=== PATIENT | female | born 1975 | race Caucasian/White ===

== ENCOUNTER 2025-01-18 09:10 | Emergency (ER) | payer OTHER, SELFPAY ==
--- NOTE | ~2025-01-18 | XR_ITS ---
EXAMINATION: XR knee RT min 4V DATE: 01/18/2025 10:11 INDICATION: Right knee injury. TECHNIQUE: 5 views of right knee were obtained. COMPARISON: None. FINDINGS: Alignment is normal. No fracture. Joint spaces are normal. No knee joint effusion. IMPRESSION: 1. Normal right knee. Reviewed, dictated and finalized at location A. METRY REGISTERED NURSE IMPRESSION: 1. Normal right knee.
--- NOTE | ~2025-01-18 | XR_ITS ---
EXAMINATION: XR hip RT min 2V DATE: 01/18/2025 10:10 INDICATION: Right hip injury. TECHNIQUE: 2 views of right hip were obtained. COMPARISON: None. FINDINGS: Alignment is normal. No fracture. There is mild right hip osteoarthritis. IMPRESSION: 1. Mild right hip osteoarthritis. Reviewed, dictated and finalized at location A. ATIONS DIRECTOR
--- NOTE | ~2025-01-18 | XR_ITS ---
EXAMINATION: XR shoulder RT min 2V DATE: 01/18/2025 10:11 INDICATION: Right shoulder injury. TECHNIQUE: 3 views of right shoulder were obtained. COMPARISON: None. FINDINGS: Alignment is normal. No fracture. There is mild osteoarthritis of glenohumeral joint and se tayler osteoarthritis of acromioclavicular joint. IMPRESSION: 1. Polyarticular osteoarthritis. Reviewed, dictated and finalized at location A. OR MEN'S READY TO WEAR
--- OUTSIDE RECORDS SUMMARY | 2025-01-18 09:14 | XMS_ITS | Clinical Summary ---
Author Organization [facility] Address [address] [place] [phone] Phone Care Team Providers Care Classroom Monitor Name Role Phone Provider, None Primary Care Provider Unavailabl e Allergies Active Allergy Reactions Criticality Noted Date Comments Codeine Rash 03/01/2024 Medications predniSONE (DELTASONE) 50 MG Tablet Take 1 Tablet by mouth daily. 5 Tablet 03/01/2024 Active Social History Tobacco Use Types Packs/Day Years Used Date Smoking Tobacco: Some Days Cigarettes Tobacco Cessation:Ready to Q uit: Not Asked; Counseling Given: Not Answered Comments Unknown Sex and Gender Information Value Date Recorded Sex Assigned at Not on file Legal Sex Female 12:00 AM CDT Gender Identity Not on file Sexual Orientation Not on file Last Filed Vital Signs Vital Sign Reading Time Taken Comments Blood Pressure 146/68 03/01/2024 11:30 AM CDT Pulse 59 03/01/2024 11:30 AM CDT Temperature 36.4 C (97.5 F) 03/01/2024 8:15 AM CDT Respiratory Rate 18 03/01/2024 11:30 AM CDT Oxygen Saturation 98% 03/01/2024 11:30 AM CDT Inhaled Oxygen Concentration - - Weight 72.6 kg (160 lb) 03/01/2024 8:15 AM CDT Height 175.3 cm (5' 9 ) 03/01/2024 8:15 AM CDT Body Mass Index 23.63 03/01/2024 8:15 AM CDT Plan of Treatment Health Maintenance Due Date Last Done Comments Hepatitis C Virus (HCV) Screening 1975 Hepatitis B Immunization (1 of 3 - 19+ 3-dose series) 1994 Pneumococcal Immunization Combined (1 of 2 - PCV) 1994 Pap Smear 1996 Cervical Cancer Screening (CCS) 2005 HPV/Cotest 2005 Mammogram 06/03/2024 06/03/2023, 12/18/2017 Influenza Immunization (#1) 2024 08/13/2019 SARS-COV-2 Immunization ( season) 2024 Colonoscopy 02/22/2031 02/22/2021 Colorectal Cancer Screening 02/22/2031 Respiratory Syncytial Virus (RSV) Immunization (Adult) (1 - 1-dose 75+ series) 2050 02/22/2021 DTaP/Tdap/Td Immunization Discontinued 11/19/2018 TdaP Immunization Completed 11/19/2018 Discussion re Starting/Frequency of Mammograms Completed 06/03/2023, 12/18/2017 Meningococcal Immunization (ACWY) Aged Out No longer eligible based on patient's age to complete this topic Rotavirus Immunization Aged Out No lo nger eligible based on patient's age to complete this topic Insurance Care Teams Classroom Monitor Relationship Specialty Start Date End Date Provider, None [place] PCP - General 11/09/21
--- OUTSIDE RECORDS SUMMARY | 2025-01-18 09:14 | XMS_ITS | Clinical Summary ---
Author Organization [facility] Address [address] [place] [address] Care Team Providers Care Projector Operator Name Role Phone Unavailable Primary Care Provider Unavailabl e Source Comments [facility],non-owned Affiliates and Associated Physician Practices is amultiple site organization consisting of ambulatory clinics and hospital sitesin [place], [place], [place] and [place]. This disclosure is being madepursuant to the Care Everywhere program and may not contain all information available regarding this patient. Last updated 18.[facility] Social History Tobacco Use Types Packs/Day Years Used Date Smoking Tobacco: Never Assessed Sex and Gender Information Value Date Recorded Sex Assigned at Not on file Gender Identity Not on file Sexual Orientation Not on file Plan of Treatment Health Maintenance Due Date Last Done Comments COLOGUARD (AGES 45-75) - COL ON CA SCREENING 1975 COLON MONITORING 1975 COLONOSCOPY - COLON CA SCREENING 1975 CT COLONOGRAPHY - COLON CA SCREENING 1975 Colorectal Cancer Screening 1975 FIT - COLON CA SCREENING 1975 FLEX SIG - COLON CA SCREENING 1975 LIPID TESTING 1975 MAMMOGRAM 1975 HIV SCREENING 1990 HEPATITIS C SCREENING 11/19/1993 DTAP/TDAP/TD VACCINES (1 - Tdap) 1994 HEPATITIS B VACCINE (1 of 3 - 19+ 3-dose series) 1994 PAP SMEAR 11/30/2001 11/30/1998 COVID-19 VACCINE ( - 2023-2 5 season) 2024 INFLUENZA VACCINE (#1) 2024 DEPRESSION SCREENING 11/13/2024 ZOSTER VACCINE (1 of 2) 2025 HIB VACCINE Aged Out No longer eligi ble based on patient's age to complete this topic HPV VACCINE Aged Out No longer eligi ble based on patient's age to complete this topic MENINGOCOCCAL (Group B) VACCINE Aged Out No longer eligible based on patient's age to complete this topic MENINGOCOCCAL VACCINE Aged Out No angelina maurice eligible based on patient's age to complete this topic PNEUMOCOCCAL VACCINE Aged Out No long er eligible based on patient's age to complete this topic Procedures Procedure Name Priority Date/Time Associated Diagnosis Comments CYTOLOGY SMEAR PAP THIN PREP ROXANE 11/30/1998 1:18 PM MEDICAL LIBRARY ASSISTANT from Last 3 Months or Most Recently Relevant to Health Maintenance Results * CYTOLOGY SMEAR PAP THIN PREP (11/30/1998 1:18 PM MEDICAL LIBRARY ASSISTANT) Result CASE NUMBER [id number] Comment: ORDERING PHYSICIAN JOAN HEREDIA SPECIMEN TYPE PAP Smear Date 11/30/1998 Procedure Cervical/Endocervical, 1 Vial for Thin Prep Received Specimen Adequacy Satisfactory for Evaluation Categorization Within Normal Limits Snomed. 12/09/1998 1516 <1> Casserole Preparer Kory Del Rio([facility]) PAP Footnote The PAP smear is only a screening procedure to aid in the detection of cervical cancer and its precursors. It is not a diagnostic procedure and should not be used as the sole means to detect cervical cancer. Both false negative and false positive results have been experienced. MISCELLANEOUS SAMPLES / Unknown 11/30/1998 1:18 PM MEDICAL LIBRARY ASSISTANT 12/08/1998 1:18 PM MEDICAL LIBRARY ASSISTANT Historical Provider LAB - PATHOLOGY/C YTOLOGY ORDERABLES from Last 3 Months or Most Recently Relevant to Health Maintenance
--- OUTSIDE RECORDS SUMMARY | 2025-01-18 09:14 | XMS_ITS | Patient Health Summary ---
Author Organization [facility] Address [address] [place] [address] Care Team Providers Care Office Machine Service Supervisor Name Role Phone Unavailable Primary Care Provider Unavailabl e Note from [facility],non-owned Affiliates and Associated Physician Practices is amultiple site organization consisting of ambulatory clinics and hospital sitesin [place], [place], [place] and [place]. This disclosure is being madepursuant to the Care Everywhere program and may not contain all information available regarding this patient. Last updated 18.[facility] Social History Tobacco Use Types Packs/Day Years Used Date Smoking Tobacco: Never Assessed Sex and Gender Information Value Date Recorded Sex Assigned at Not on file Gender Identity Not on file Sexual Orientation Not on file Procedures * CYTOLOGY SMEAR PAP THIN PREP(Performed 11/30/1998) Results * CYTOLOGY SMEAR PAP THIN PREP (11/30/1998 1:18 PM SMOKE ROOM OPERATOR) Result CASE NUMBER [id number] Comment: ORDERING PHYSICIAN JOAN HEREDIA SPECIMEN TYPE PAP Smear Date 11/30/1998 Procedure Cervical/Endocervical, 1 Vial for Thin Prep Received Specimen Adequacy Satisfactory for Evaluation Categorization Within Normal Limits Snomed. 12/09/1998 1516 <1> Coremaker Apprentice Kory Del Rio([facility]) PAP Footnote The PAP smear is only a screening procedure to aid in the detection of cervical cancer and its precursors. It is not a diagnostic procedure and should not be used as the sole means to detect cervical cancer. Both false negative and false positive results have been experienced. MISCELLANEOUS SAMPLES / Unknown 11/30/1998 1:18 PM SMOKE ROOM OPERATOR 12/08/1998 1:18 PM SMOKE ROOM OPERATOR Historical Provider LAB - PATHOLOGY/C YTOLOGY ORDERABLES
--- OUTSIDE RECORDS SUMMARY | 2025-01-18 09:14 | XMS_ITS | Referral Summary ---
Author Organization [facility] Address [address] [place] [address] Care Team Providers Care Cardroom Plastic Card Grader Name Role Phone Troy Huizar MD Primary Care Provider [phone] Olga Choudhary MD Unavailable [phone] Taina Reyes MD Unavailable [phone] Allergies Active Allergy Reactions Criticality Noted Date Comments Ciprofloxacin Itching,Nausea only Low 02/20/2021 Codeine Anxiety,Shortness of breath,Rash High 03/01/2024 Reaction: anxiety, sob, , , Medications albuterol HFA (PROVENTIL HFA,VENTOLIN HFA,PROAIR HFA) 90 mcg/actuation inhalerIndications :Mild intermittent reactive airway disease without complication Inhale 2 puffs every 4 to 6 hours as needed for cough, wheeze, SOB, tightness in chest. 1 each 3 05/02/20 23 Active wheat dextrin (BENEFIBER CLEAR SF, DEXTRIN, ORAL) Take 1 Scoop by mouth daily Mix 1 tablespoon in 1 bottle of water Active hydrocortisone (ANUSOL-HC) 2.5 % rectal cream Insert into the rectum 2 (two) times a day as needed for hemorrhoids Active ascorbic acid (VITAMIN C) 500 mg tablet,chewable Take 1 tablet/chew tab (500 mg total) by mouth 2 (two) times a day 60 tablet/chew tab 04/15/20 24 Active cholecalciferol (VITAMIN D-3) 2000 unit capsule Take 1 capsule (2,000 Units total) by mouth daily 30 capsule 04/15/20 24 Active aspirin 81 mg enteric coated tablet Take 1 tablet (81 mg total) by mouth daily for 14 days 21 tablet 04/15/20 24 Active oxyCODONE-acetamin ophen (PERCOCET) 5-325 mg per tabletIndications: Pain Take 1-2 tablets by mouth every 4 (four) hours as needed for pain 30 tablet 04/15/20 24 Active senna-docusate (PERICOLACE) 8.6-50 mg Take 1-2 tablets daily prn for constipation 30 tablet 04/15/20 24 Active naproxen (NAPROSYN) 500 mg tablet Take 1 tablet (500 mg total) by mouth 2 (two) times a day with meals 84 tablet 04/15/20 24 Active omeprazole (PriLOSEC) 20 mg capsule Take 1 capsule (20 mg total) by mouth daily 30 capsule 1 04/17/20 24 025 Active dicyclomine (BENTYL) 10 mg capsule Take 2 capsules (20 mg total) by mouth 4 (four) times a day before meals and nightly 90 capsule 3 05/30/20 24 Active ondansetron ODT (ZOFRAN-ODT) 4 mg disintegrating tablet Take 1 tablet (4 mg total) by mouth every 8 (eight) hours as needed for nausea or vomiting 30 tablet 3 05/30/20 24 Active Active Problems Problem Noted Date Diagnosed Date Hip pain, right 04/15/2024 Tear of right acetabular labrum 03/21/2024 Encounter for screening for lipid disorder 02/19 Assessment & Plan (02/20/2024 9:04 AM CDT): Lipid panel ordered. Will message through [employer] with results once received. Preop examination 02/20/2024 Assessment & Plan (02/20/2024 9:06 AM CDT): Pt will be medically cleared to proceed with surgery per family medicine standpoint once all labs and other diagnostics have been received and reviewed. Counseled of any applicable prescribed or OTC medications, supplements to discontinue and/or hold preoperatively w/ direction of when to resume postoperatively as agreed by surgeon. Pt was instructed to contact the office with absolutely any changes prior to and post surgery. Hot flashes 10/31/2023 Assessment & Plan (10/31/2023 11:28 AM SHIP'S ENGINEER): Patient is s/p partial hysterectomy 2015. We discussed treatment options for hot flashes recommended low-dose paroxetine. Patient prefers to avoid use of Paxil. She is interested in trying herbal supplement, black cohosh. Right hip pain 05/05/2023 Assessment & Plan (10/31/2023 11:28 AM SHIP'S ENGINEER): Updated referral today to Orthopedic surgery and given patient phone number to call and schedule an appointment. Continue meloxicam, patient aware that she can not take more than 15 mg daily. Recommended she supplement meloxicam with acetaminophen. Assessment & Plan (05/05/2023 11:58 AM CDT): Given reports of hip popping in and out of place, will check xray today. Encouraged use of nsaids. Late entry: reviewed imaging negative for fracture or dislocation, showing arthritic change. Prescribed meloxicam for pain. Referral placed to orthopedic surgery for further evaluation and treatment. Encounter to establish care 04/27/2023 Assessment & Plan (05/05/2023 11:56 AM CDT): Preventive exam; reviewed recommended preventive screenings and vaccinations. Encourage annual flu vaccine. Wear sunscreen/protective clothing when outdoors. -Mammogram ordered today -Encouraged continued WWE/Pap screening Reactive airway disease 04/27/2023 Assessment & Plan (02/20/2024 9:04 AM CDT): No recent exacerbation. Chest x-ray prior to surgery. Assessment & Plan (05/05/2023 11:56 AM CDT): No recent exacerbation. Prn use of albuterol. Encounter for screening mammogram for breast can cer 04/27/2023 Poor sleep 2021 Lack of energy 08/16/2021 Assessment & Plan (08/16/2021 2:49 PM CDT): -discussed. Could be a symptom of depression? Discussed refer to psychiatry. Patient is really very of that she states and describes about experienced with her daughter. No suicidal ideation. Recommended to monitor the symptoms and contact me other primary care physician if the symptoms worsen in any way. Nausea 06/30/2021 Assessment & Plan (06/30/2021 1:39 PM CDT): -will give Zofran p.r.n. for nausea. Irritable bowel syndrome with diarrhea Overview (02/20/2021): Added automatically from request for surgery [id number] Assessment & Plan (02/20/2024 9:04 AM CDT): Refilled dicyclomine. Reviewed dietary recommendations. Continue following with GI as directed. Assessment & Plan (10/31/2023 11:29 AM SHIP'S ENGINEER): Symptoms stable, continue p.r.n. dicyclomine. Assessment & Plan (04/27/2023 3:52 PM CDT): Following with GI. Continues bentyl as needed. Assessment & Plan (01/12/2022 3:29 PM SHIP'S ENGINEER): -not taking any medications. States that she does not have any money. Even to buy groceries. Given number to social work assistant. Has been got a new insurance. Recommended to start back on medications once she has insurance. -when she has insurance to will continue back on Pentasa. -occasional abdominal pain. Will give Bentyl p.r.n.. Continue soluble fiber supplementation. Encouraged Benefiber use. -will add low-dose amitriptyline. Also reports poor sleep. + fatigue (most likely secondary to poor sleep and recent COVID). Will re-evaluate during next clinic visit. -Also recommended non pharmacological measures as noted below, --ROOM TEMPERATURE BEVERAGES. -Maintain good hydration. With approximately 64 oz of water a day -AVOID RAW VEGETABLES. EAT COOKED VEGETABLES. -drink coconut water as one of the preferred beverages. -consider use of yogurt, which is a good probiotic. -consider use of honey with lemon, jj if possible. -Use benefibre, or fibrecon if methylcellulose not available or cannot be tolerated. -MINDFULLNESS WITH 20MIN FOR TWICE A DAY. -30 minutes of low intensity walking every day. Assessment & Plan (2021 12:06 PM SHIP'S ENGINEER): -occasional abdominal pain. Will give Bentyl p.r.n.. Continue soluble fiber supplementation. Encouraged Benefiber use. -will add low-dose amitriptyline. Also reports poor sleep. + fatigue (most likely secondary to poor sleep and recent COVID). Will re-evaluate during next clinic visit. -Also recommended non pharmacological measures as noted below, --ROOM TEMPERATURE BEVERAGES. -Maintain good hydration. With approximately 64 oz of water a day -AVOID RAW VEGETABLES. EAT COOKED VEGETABLES. -drink coconut water as one of the preferred beverages. -consider use of yogurt, which is a good probiotic. -consider use of honey with lemon, jj if possible. -Use benefibre, or fibrecon if methylcellulose not available or cannot be tolerated. -MINDFULLNESS WITH 20MIN FOR TWICE A DAY. -30 minutes of low intensity walking every day. Assessment & Plan (08/16/2021 2:48 PM CDT): -occasional abdominal pain. Will give Bentyl p.r.n.. Not taking soluble fiber supplementation. Encouraged to do so. Cannot tolerate methylcellulose. Encouraged Benefiber use. -Also recommended non pharmacological measures as noted below, --ROOM TEMPERATURE BEVERAGES. -Maintain good hydration. With approximately 64 oz of water a day -AVOID RAW VEGETABLES. EAT COOKED VEGETABLES. -drink coconut water as one of the preferred beverages. -consider use of yogurt, which is a good probiotic. -consider use of honey with lemon, jj if possible. -Use benefibre, or fibrecon if methylcellulose not available or cannot be tolerated. -MINDFULLNESS WITH 20MIN FOR TWICE A DAY. -30 minutes of low intensity walking every day. Assessment & Plan (06/30/2021 1:39 PM CDT): -use of soluble soluble fiber supplementation with methylcellulose daily. Also recommended non pharmacological measures as noted below, --ROOM TEMPERATURE BEVERAGES. -Maintain good hydration. With approximately 64 oz of water a day -AVOID RAW VEGETABLES. EAT COOKED VEGETABLES. -drink coconut water as one of the preferred beverages. -consider use of yogurt, which is a good probiotic. -consider use of honey with lemon, jj if possible. -Use benefibre, or fibrecon if methylcellulose not available or cannot be tolerated. -MINDFULLNESS WITH 20MIN FOR TWICE A DAY. 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 Symptoms of abdominal pain well controlled with Bentyl. No diarrhea. -doing well on Apriso. Will continue. -occasional abdominal pain. Will give Bentyl p.r.n.. Continue soluble fiber supplementation. Encouraged Benefiber use. -Also recommended non pharmacological measures as noted below, --ROOM TEMPERATURE BEVERAGES. -Maintain good hydration. With approximately 64 oz of water a day -AVOID RAW VEGETABLES. EAT COOKED VEGETABLES. -drink coconut water as one of the preferred beverages. -consider use of yogurt, which is a good probiotic. -consider use of honey with lemon, jj if possible. -Use benefibre, or fibrecon if methylcellulose not available or cannot be tolerated. -MINDFULLNESS WITH 20MIN FOR TWICE A DAY. -30 minutes of low intensity walking every day. Assessment & Plan (01/12/2022 3:31 PM SHIP'S ENGINEER): -microscopic disease. Endoscopy grossly normal. -Will continue with Pentasa at the current dose. Refill given. For chronic diarrhea will give soluble fiber supplementation with methylcellulose. Will give Imodium on a p.r.n. basis. Prescriptions given. -CBC, CMP, ESR, CRP normal. fecal calprotectin not done. Assessment & Plan (08/16/2021 2:47 PM CDT): -microscopic disease. Endoscopy clearly normal. Will continue with Pentasa at the current dose. Refill given. For chronic diarrhea will give soluble fiber supplementation with methylcellulose. Will give Imodium on a p.r.n. basis. Prescriptions given. Also recommended, -ROOM TEMPERATURE BEVERAGES. -Maintain good hydration. With approximately 64 oz of water a day -AVOID RAW VEGETABLES. EAT COOKED VEGETABLES. -drink coconut water as one of the preferred beverages. -consider use of yogurt, which is a good probiotic. -consider use of honey with lemon, jj if possible. -Use benefibre, or fibrecon if methylcellulose not available or cannot be tolerated. -MINDFULLNESS WITH 20MIN FOR TWICE A DAY. Assessment & Plan (06/30/2021 1:38 PM CDT): -microscopic disease. Endoscopy clearly normal. Will continue with Pentasa at the current dose. Refill given. For chronic diarrhea will give soluble fiber supplementation with methylcellulose. Will give Imodium on a p.r.n. basis. Prescriptions given. Also recommended, -ROOM TEMPERATURE BEVERAGES. -Maintain good hydration. With approximately 64 oz of water a day -AVOID RAW VEGETABLES. EAT COOKED VEGETABLES. -drink coconut water as one of the preferred beverages. -consider use of yogurt, which is a good probiotic. -consider use of honey with lemon, jj if possible. -Use benefibre, or fibrecon if methylcellulose not available or cannot be tolerated. -MINDFULLNESS WITH 20MIN FOR TWICE A DAY. Assessment & Plan (03/01/2021 11:50 AM CDT): -microscopic disease. Endoscopy clearly normal. Will continue with Pentasa at the current dose. Refill given. For chronic diarrhea will give soluble fiber supplementation with methylcellulose. Will give Imodium on a p.r.n. basis. Prescriptions given. Also recommended, -ROOM TEMPERATURE BEVERAGES. -Maintain good hydration. With approximately 64 oz of water a day -AVOID RAW VEGETABLES. EAT COOKED VEGETABLES. -drink coconut water as one of the preferred beverages. -consider use of yogurt, which is a good probiotic. -consider use of honey with lemon, jj if possible. -Use benefibre, or fibrecon if methylcellulose not available or cannot be tolerated. -MINDFULLNESS WITH 20MIN FOR TWICE A DAY. Ulcerative pancolitis with rectal bleeding 02/19/2021 05/30/2024 Overview (02/20/2021): Added automatically from request for surgery [id number] Assessment & Plan (10/19/2022 11:35 AM SHIP'S ENGINEER): -symptoms well controlled. Symptoms of abdominal pain well controlled with Bentyl. No diarrhea. -doing well on Apriso. Will continue. -occasional abdominal pain. Will give Bentyl p.r.n.. Continue soluble fiber supplementation. Encouraged Benefiber use. -Also recommended non pharmacological measures as noted below, --ROOM TEMPERATURE BEVERAGES. -Maintain good hydration. With approximately 64 oz of water a day -AVOID RAW VEGETABLES. EAT COOKED VEGETABLES. -drink coconut water as one of the preferred beverages. -consider use of yogurt, which is a good probiotic. -consider use of honey with lemon, jj if possible. -Use benefibre, or fibrecon if methylcellulose not available or cannot be tolerated. -MINDFULLNESS WITH 20MIN FOR TWICE A DAY. -30 minutes of low intensity walking every day. Assessment & Plan (2021 12:01 PM SHIP'S ENGINEER): -microscopic disease. Endoscopy grossly normal. Reports new onset of bloody stools. -Will continue with Pentasa at the current dose. Refill given. For chronic diarrhea will give soluble fiber supplementation with methylcellulose. Will give Imodium on a p.r.n. basis. Prescriptions given. -will obtain CBC, CMP, ESR, CRP and fecal calprotectin for evaluation for baseline hematological, metabolic, him inflammatory biomarkers and to assess disease activity with fecal calprotectin. Also recommended, -ROOM TEMPERATURE BEVERAGES. -Maintain good hydration. With approximately 64 oz of water a day -AVOID RAW VEGETABLES. EAT COOKED VEGETABLES. -drink coconut water as one of the preferred beverages. -consider use of yogurt, which is a good probiotic. -consider use of honey with lemon, jj if possible. -Use benefibre, or fibrecon if methylcellulose not available or cannot be tolerated. -MINDFULLNESS WITH 20MIN FOR TWICE A DAY. Tobacco dependence syndrome 03/29/2014 10/02/2017 Overview (02/16/2017): TOBACCO USE DISORDER Immunizations Immunization Administration Dates Next Due Influenza, Split 02/28/2014 Influenza, Unspecified 02/12/2024(Deferr ed: Patient Refused),10/30/2023(Deferred: Patient Refused),08/13/2023(Deferred: Patient Refused),08/13/2022(Deferred: Patient Refused),07/14/2022(Deferred: Patient Refused),08/13/2021(Deferred: Patient Refused),08/13/2019,10/02/2017(Deferred: Patient Refused),10/02/2017(Deferred: Patient Refused),11/13/2016(Deferred: Patient Refused),11/13/2016(Deferred: Patient Refused) Tdap 11/19/2018 Social History Tobacco Use Types Packs/Day Years Used Date Smoking Tobacco: Former Cigarettes Q uit: 09/13/2016 Smokeless Tobacco: Former Comments:Smoking History Pac ks/day: 0.75 Packs Alcohol Use Standard Drinks/Week Comments No 0 (1 standard drink = 0.6 oz pur e alcohol) AUDIT-C Answer Date Recorded Q1: How often do you have a drink containing alcohol? Never 08/15/2024 Q2: How many drinks containi ng alcohol do you have on a typical day when you are drinking? Patient does not drink Q3: How often do you have si x or more drinks on one occasion? Never 08/15/2024 PHQ-2 Answer Date Recorded PHQ-2 Total Score (If total score is 3 or more points, staff should administer the PHQ-9) 0 02/20/2024 Personal Safety Answer Date Recorded Have you ever been in or are you currently in a harmful physical or emotional relationship or is someone making you feel afraid or unsafe? 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 Not on file Not on file Not on file Last Filed Vital Signs Vital Sign Reading Time Taken Comments Blood Pressure 125/75 08/15/2024 1:03 PM CDT Pulse 76 08/15/2024 1:03 PM CDT Temperature 37 C (98.6 F) 04/15/2024 7:15 PM CDT Respiratory Rate 16 04/15/2024 7:15 PM CDT Oxygen Saturation 98% 05/30/2024 10:53 AM CDT Inhaled Oxygen Concentration - - Weight 76.2 kg (168 lb) 08/15/2024 1:03 PM CDT Height 172.7 cm (5' 8 ) 08/15/2024 1:03 PM CDT Body Mass Index 25.54 08/15/2024 1:03 PM CDT Plan of Treatment Not on file Medical Devices Implanted Type Area Factory Clerk Device Identifier Shelf Expiration Date Model / Serial / Lot [employer] Fiberlink Ar[employer]rex Suturetape 1.3mm Tape Suture Nonabsorbable [id number] - [id number] Implanted:Qty: 2 on 04/15/2024 by Yefri Griggs MD at [facility] Right: Hip [employer] AR-7535 / / Arthrex Suture [place], Biocomposite, Mini Hip Pushlock 2.4 X 8.9mm (Ref [id number]) Implanted:Qty: 2 on 04/15/2024 by Yefri Griggs MD at [facility] Right: Hip [employer] 05/12/2025 [id number] / / [id number] Description:THE MINI PUSHLOC K IS LISTED IN SCCS A SUPPLY-DC Procedures Procedure Name Priority Date/Time Associated Diagnosis Comments SCREENING MAMMOGRAM BILATERAL W CIRILO Schedule Routine, Read Routine (OP Routine) 06/03/2023 10:12 AM CDT Encounter for screening mammogram for breast cancer COLONOSCOPY 02/22/2021 1:15 PM CDT THINPAP, REFLEX HPV ALL PTH Routine 10/03/2013 12:00 AM SHIP'S ENGINEER from Last 3 Months or Most Recently Relevant to Health Maintenance Results * SCREENING MAMMOGRAM BILATERAL W CIRILO (06/03/2023 10:12 AM CDT) Anatomical Region Laterality Modality Breast Bilateral Mammography 06/04/2023 9:02 AM CDT Impressions 06/04/2023 9:02 AM CDT There is no mammographic evidence of malignancy. A 1 year screening mammogram is recommended. BI-RADS: 1 - Negative. The patient has been or will be contacted. The patient will be entered into a reminder system with a target due date of 1 year for her next mammogram. Electronically signed by: CLARITZA Connelly 06/04/2023 9:02 AM CDT EXAMINATION: SCREENING MAMMOGRAM BILATERAL W CIRILO ORDERING HEALTHCARE PROVIDER: ZAK CRUZ HISTORY: Routine screening mammography. COMPARISON: None available. TECHNIQUE: CC and MLO views of both breasts were obtained with digital technique using digital breast tomosynthesis with C view. Computer aided detection was utilized. FINDINGS: DENSITY: The breasts are extremely dense, which lowers the sensitivity of mammography. BREASTS: There are no suspicious masses, suspicious calcifications, or other suspicious findings in either breast. us Zak Cruz FARE COLLECTOR IMG MAMMO PROCEDURES Final Result * COLONOSCOPY (02/22/2021 1:15 PM CDT) Anatomical Region Laterality Modality Other Narrative Procedure Note Olga Choudhary MD - 02/22/2021 1:15 PM CDT [facility] Patient Name: Shellie Louie Procedure Date: 02/22/2021 1:15 PM Date of : 1975 Admit Type: Inpatient Age: 45 Gender: Female Note Status: Finalized Attending MD: Olga Choudhary M.D. Procedure Date: 02/22/2021 Procedure: Colonoscopy Indications: Abdominal pain, Chronic diarrhea, Rectal bleeding, Abnormal CT of the GI tract Providers: Olga Choudhary M.D., Humberto Ordonez M.D. (Anesthesia Staff), Altagracia Walls RN, Jayshree Harris RN Referring MD: Troy Huizar M.D. Medicines: Monitored Anesthesia Care Complications: No immediate complications. Estimated Blood Loss: Estimated blood loss was minimal. Procedure: Pre-Anesthesia Assessment: - Prior to the procedure, a History and Physicalwas performed, and patient medications and allergieswere reviewed. The patient is competent. The risks and benefits of the procedure and the sedation optionsand risks were discussed with the patient. Allquestions were answered and informed consent was obtained. Patient identification and proposed procedure were verified by the physician and the nurse in the pre-procedure area in the procedure room. Mental Status Examination: alert and oriented. Airway Examination: normal oropharyngeal airway and neck mobility. Respiratory Examination: clear to auscultation. CV Examination: normal. Prophylactic Antibiotics: The patient does not requireprophylactic antibiotics. Prior Anticoagulants: The patient has taken no previous anticoagulant or antiplatelet agents. ASA Grade Assessment: III - A patient with severe systemic disease. After reviewing the risksand benefits, the patient was deemed in satisfactory condition to undergo the procedure. The anesthesia plan was to use monitored anesthesia care (MAC). Immediately prior to administration of medications, the patient was re-assessed for adequacy to receive sedatives. The heart rate, respiratory rate, oxygen saturations, blood pressure, adequacy of pulmonary ventilation, and response to care were monitored throughout the procedure. The physical status ofthe patient was re-assessed after the procedure. - The risks and benefits of the procedure and the sedation options and risks were discussed with the patient. All questions were answered and informed consent was obtained. After I obtained informed consent, the scope was passed under direct vision. Throughout theprocedure, the patient's blood pressure, pulse, and oxygen saturations were monitored continuously. The scopewas passed under direct vision. The Colonoscope was introduced through the anus and advanced to the the terminal ileum, with identification of theappendiceal orifice and IC valve. The colonoscopy was performed without difficulty. The patient tolerated the procedure well. The quality of the bowelpreparation was fair. The bowel preparation used was MoviPrepvia split dose instruction. Findings: The perianal and digital rectal examinations were normal. Non-bleeding internal hemorrhoids were found during retroflexion. The hemorrhoids were mild. Normal mucosa was found in the entire colon. Biopsies were taken witha cold forceps for histology. Verification of patient identificationfor the specimen was done by the nurse. Estimated blood loss wasminimal. The terminal ileum appeared normal. Impression: - Preparation of the colon was fair. - Non-bleeding internal hemorrhoids. - Normal mucosa in the entire examined colon.Biopsied. - The examined portion of the ileum was normal. Recommendation: - Return patient to hospital [facility] for ongoingcare. - Resume previous diet. - Continue present medications. - Await pathology results. - Follow up in GI clinic. - Can discontinue pentasa. - Repeat colonoscopy at age 50 for screeningpurposes. Procedure Code(s): --- Professional --- 84614, Colonoscopy, flexible; with biopsy, singleor multiple Diagnosis Code(s): --- Professional --- K64.8, Other hemorrhoids R10.9, Unspecified abdominal pain K52.9, Noninfective gastroenteritis and colitis, unspecified K62.5, Hemorrhage of anus and rectum R93.3, Abnormal findings on diagnostic imaging of other parts of digestive tract CPT copyright 2019 [employer]. All rights reserved. The codes documented in this report are preliminary and upon blindstitch hemmer reviewmay be revised to meet current compliance requirements. Electronically signed by Funmi Espinoza MD Olga Choudhary M.D. 02/22/2021 2:56:51 PM This report has been electronically signed by the physician. Number of Addenda: 0 Note Initiated On: 02/22/2021 1:15 PM Olga Choudhary MD ENDOSCOPY PROCEDURES Final Re sult * ThinPrep Pap, Reflex HPV all pth (10/03/2013 12:00 AM SHIP'S ENGINEER) SOURCE: SEE NOTE [facility] HISTORICAL RESULTS Comment:Cervix, Endocervix CLINICAL INFORMATION: SEE NOTE [facility] HISTORICAL RESULTS Comment:Normal exam LMP SEE NOTE [facility] HISTORICAL RESULTS Comment:09/27/13 Previous Pap SEE NOTE [facility] HISTORICAL RESULTS Comment:Information not prov ided Prev. Bx SEE NOTE [facility] HISTORICAL RESULTS Comment:Information not prov ided Pap, specimen adequacy SEE NOTE [facility] HISTORICAL RESULTS Comment: Satisfactory for evaluation. Endocervical/transformation zone component absent. HPV interp SEE NOTE [facility] HISTORICAL RESULTS Comment:Negative for intraep ithelial lesion or malignancy. Lactobacillus species SEE NOTE [facility] HISTORICAL RESULTS Comment: This Pap test has been evaluated with computer assisted technology. Senior Project Architect SEE NOTE [facility] HISTORICAL RESULTS Comment: JEL, CT(ASCP) Test performed at [facility] [address] Director: AJAY RAPHAEL DO, MPH 10/03/2013 Maryse Zhang MD LAB PATHOLOGY ORDERAB LES Final Result [facility] HISTORICAL RESULTS from Last 3 Months or Most Recently Relevant to Health Maintenance Insurance [id number] CHOICE PLUS CHOICE PLUS CHOICE PLUS CHOICE PLUS [employer] OPEN ACCESS Advance Directives For more information, please contact: [phone] * Full Code (Latest Code Status on File) Date Activated Date Inactivated Comments 04/15/2024 4:52 PM 04/16/2024 12:08 AM * Full Code Date Activated Date Inactivated Comments 02/19/2021 9:31 PM 02/22/2021 9:46 PM Care Teams Cardroom Plastic Card Grader Relationship Specialty Start Date End Date Troy Huizar MD [address] [place] [address] PCP - General 03/20/12 [place] [id number] [facility] [address] [place] [address] Consulting Physician Gastroenterology 02/22/21 [place] [id number] [address] [facility] [address] [place] [address] Consulting Physician Pulmonary Disease 02/22/21
--- OUTSIDE RECORDS SUMMARY | 2025-01-18 09:14 | XMS_ITS | Referral Summary ---
Author Organization [facility] Address [address] [facility] [place] [address] Care Team Providers Care Premises Technician Name Role Phone Unavailable Primary Care Provider Unavailabl e Source Comments [facility],non-owned Affiliates and Associated Physician Practices is amultiple site organization consisting of ambulatory clinics and hospital sitesin [place], [place], [place] and [place]. This disclosure is being madepursuant to the Care Everywhere program and may not contain all information available regarding this patient. Last updated 18.[facility] Social History Tobacco Use Types Packs/Day Years Used Date Smoking Tobacco: Never Assessed Sex and Gender Information Value Date Recorded Sex Assigned at Not on file Gender Identity Not on file Sexual Orientation Not on file Plan of Treatment Not on file Procedures Procedure Name Priority Date/Time Associated Diagnosis Comments CYTOLOGY SMEAR PAP THIN PREP ROXANE 11/30/1998 1:18 PM FARMWORKER CRANBERRY from Last 3 Months or Most Recently Relevant to Health Maintenance Results * CYTOLOGY SMEAR PAP THIN PREP (11/30/1998 1:18 PM FARMWORKER CRANBERRY) Result CASE NUMBER [id number] Comment: ORDERING PHYSICIAN JOAN HEREDIA SPECIMEN TYPE PAP Smear Date 11/30/1998 Procedure Cervical/Endocervical, 1 Vial for Thin Prep Received Specimen Adequacy Satisfactory for Evaluation Categorization Within Normal Limits Snomed. 12/09/1998 1516 <1> Electrician Helper Powerhouse Kory Del Rio(ASCP) PAP Footnote The PAP smear is only a screening procedure to aid in the detection of cervical cancer and its precursors. It is not a diagnostic procedure and should not be used as the sole means to detect cervical cancer. Both false negative and false positive results have been experienced. MISCELLANEOUS SAMPLES / Unknown 11/30/1998 1:18 PM FARMWORKER CRANBERRY 12/08/1998 1:18 PM FARMWORKER CRANBERRY Historical Provider MD LAB - PATHOLOGY/C YTOLOGY ORDERABLES from Last 3 Months or Most Recently Relevant to Health Maintenance
--- OUTSIDE RECORDS SUMMARY | 2025-01-18 09:14 | XMS_ITS | Clinical Summary ---
Author Organization [facility] Address [address] [place] [address] Care Team Providers Care Coating Machine Operator Helper Name Role Phone Troy Huizar MD Primary Care Provider [phone] Olga Choudhary MD Unavailable Taina Reyes MD Unavailable Allergies Active Allergy Reactions Criticality Noted Date [...] CDT): Lipid panel ordered. Will message through Enpocket with results once received. Preop examination 02/20/2024 [...] 10/31/2023 Assessment & Plan (10/31/2023 11:28 AM FEATURES EDITOR): Patient is s/p partial hysterectomy 2015. We discussed treatment options for hot flashes recommended low-dose paroxetine. Patient prefers to avoid use of Paxil. She is interested in trying herbal supplement, black cohosh. Right hip pain 05/05/2023 Assessment & Plan (10/31/2023 11:28 AM FEATURES EDITOR): Updated referral today to Orthopedic surgery and [...] (02/20/2021): Added automatically from request for surgery [id number] Assessment & Plan (02/20/2024 9:04 AM CDT): Refilled dicyclomine. Reviewed dietary recommendations. Continue following with GI as directed. Assessment & Plan (10/31/2023 11:29 AM FEATURES EDITOR): Symptoms stable, continue p.r.n. dicyclomine. Assessment & Plan (04/27/2023 3:52 PM CDT): Following with GI. Continues bentyl as needed. Assessment & Plan (01/12/2022 3:29 PM FEATURES EDITOR): -not taking any medications. States that she does not have any money. Even to buy groceries. Given number to child protective services social worker. Has been got a new insurance. Recommended [...] day. Assessment & Plan (2021 12:06 PM FEATURES EDITOR): -occasional abdominal pain. Will give Bentyl p.r.n.. [...] day. Assessment & Plan (01/12/2022 3:31 PM FEATURES EDITOR): -microscopic disease. Endoscopy grossly normal. -Will continue [...] (02/20/2021): Added automatically from request for surgery [id number] Assessment & Plan (10/19/2022 11:35 AM FEATURES EDITOR): -symptoms well controlled. Symptoms of abdominal pain [...] day. Assessment & Plan (2021 12:01 PM FEATURES EDITOR): -microscopic disease. Endoscopy grossly normal. Reports new [...] Refused),11/13/2016(Deferred: Patient Refused),11/13/2016(Deferred: Patient Refused) Tdap 11/19/2018 Surgical History Surgery Date Site/Laterality Comments OTHER SURGICAL HISTORY 11/13/1996 - 11/12/1997 Contraception: Mini laparotomy tubal ligation OTHER SURGICAL HISTORY 11/13/2014 - 11/12/2015 Menorrhagia, dysmenorrhea - serosal endometriosis: TLH, bilateral salpingectomy PARTIAL HYSTERECTOMY TUBAL LIGATION FL FLUORO GUIDED INJECTION HIP LEFT 02/13/2024 Left Medical History Medical History Date Comments Menorrhagia, dysmenorrhea - serosal endometriosis; Comments: RED 12/30/2015 - Menorrhagia, dysmenorrhea - serosal endometriosis; Comments: RED 12/30/2015 - IBS (irritable bowel syndrome) Asthma Chronic back pain Colitis Smoker Inflammatory bowel disease Osteoarthritis Family History Medical History Relation Name Comments Coronary artery disease Father Jory nary artery disease; Diabetes Father Diabetes mellit us; Breast cancer Father's Sister Coronary artery disease Mother Jory nary artery disease; Depression Mother Depression; Migraines Mother Migraines; Other Other No family histo ry of Cancer, breast; Diabetes Sister Fibromyalgia Sister Relation Name Status Comments Father Father's Sister Mother Alive Other Sister Social History Tobacco Use Types Packs/Day Years [...] on file Legal Sex Female 1:55 PM FEATURES EDITOR Gender Identity Female 09/15/2023 1:19 PM CDT Sexual Orientation Straight 09/15/2023 1: 19 PM CDT 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 on file Not on file Not on file Obstetrics History Para Term AB IAB SAB Ectopic Multiple Livin g Live Births 5 4 3 1 1 3 Date Outcome GA Total Labor Labor/2nd/3rd Weight Sex Type Anes PTL Irais A1 A5 Name Clin Term AB Term Term Last Filed Vital Signs Vital Sign Reading [...] 08/15/2024 1:03 PM CDT Plan of Treatment Health Maintenance Due Date Last Done Comments Hepatitis C Screening 1975 Hepatitis B Screening 1993 Pneumococcal vaccine <65 (1 of 2 - PCV) 1994 Regular Well Visit/Exam 18-64 12/18/2018 12/18/2017 Breast Cancer Screening-Mammogram 06/03/2024 06/03/2023, 06/03/2023, 12/18/2017 Depression Screening 02/19/2025 02/20/2024, 10/30/2023, 05/25/2023, Additional history exists Colon Cancer Screening-Colonoscopy 02/22/2026 02/22/2021, 04/15/2014 DTaP/Tdap/Td Vaccine (2 - Td or Tdap) 11/19/2028 11/19/2018 Cervical Cancer Screening Discontinued 10/03/2013 Influenza Vaccine Discontinued 08/13/2019, 02/28/2014 Medical Devices Implanted Type Area Group Counselor Device Identifier Shelf Expiration Date Model / Serial / Lot [employer] Fiberlink Arthrex Suturetape 1.3mm Tape Suture Nonabsorbable [id number] - [id number] Implanted:Qty: 2 on 04/15/2024 by Yefri Griggs MD at [facility] Right: Hip [employer] AR-7535 / / Arthrex Suture [place], Biocomposite, Mini Hip Pushlock 2.4 X 8.9mm (Ref [id number]) Implanted:Qty: 2 on 04/15/2024 by Yefri Griggs MD at [facility] Right: Hip Alo Ocasio 05/12/2025 [id number] / / [id number] Description:THE MINI PUSHLOC K IS LISTED IN SCCS A SUPPLY-DC Procedures Procedure Name Priority Date/Time Associated Diagnosis Comments SCREENING MAMMOGRAM BILATERAL W CIRILO Schedule Routine, Read Routine (OP Routine) 06/03/2023 10:12 AM CDT Encounter for screening mammogram for breast cancer COLONOSCOPY 02/22/2021 1:15 PM CDT THINPAP, REFLEX HPV ALL PTH Routine 10/03/2013 12:00 AM FEATURES EDITOR from Last 3 Months or Most Recently [...] or other suspicious findings in either breast. Zak Cruz PRINTER'S DEVIL IMG MAMMO PROCEDURES Final Result * COLONOSCOPY (02/22/2021 1:15 PM CDT) Anatomical Region Laterality Modality Other Narrative Procedure Note Olga Choudhary MD - 02/22/2021 1:15 PM CDT [facility] Patient Name: Shellie Louie Procedure [...] for screeningpurposes. Procedure Code(s): --- Professional --- 14349, Colonoscopy, flexible; with biopsy, singleor multiple Diagnosis Code(s): --- Professional --- K64.8, Other hemorrhoids R10.9, Unspecified abdominal pain K52.9, Noninfective gastroenteritis and colitis, unspecified K62.5, Hemorrhage of anus and rectum R93.3, Abnormal findings on diagnostic imaging of other parts of digestive tract CPT copyright 2019 [employer]. All rights reserved. The codes documented in this report are preliminary and upon teacher adult education reviewmay be revised to meet current compliance requirements. Electronically signed by Funmi Espinoza MD Olga Choudhary M.D. 02/22/2021 2:56:51 PM This report has been electronically signed by the physician. Number of Addenda: 0 Note Initiated On: 02/22/2021 1:15 PM Olga Choudhary MD ENDOSCOPY PROCEDURES Final Re sult * ThinPrep Pap, Reflex HPV all pth (10/03/2013 12:00 AM FEATURES EDITOR) SOURCE: SEE NOTE [facility] HISTORICAL RESULTS Comment:Cervix, [...] has been evaluated with computer assisted technology. Research And Development Technician SEE NOTE [facility] HISTORICAL RESULTS Comment: JEL, CT(ASCP) Test performed at [facility] [address] Director: AJAY RAPHAEL DO, MPH 10/03/2013 Maryse Zhang MD LAB PATHOLOGY ORDERAB LES Final Result [facility] HISTORICAL RESULTS from Last 3 Months or Most Recently Relevant to Health Maintenance Insurance [id number] CHOICE PLUS [id number] [place] [address] CHOICE PLUS CHOICE PLUS CHOICE PLUS [employer] OPEN ACCESS Advance Directives For more information, please contact: [phone] * Full Code (Latest Code Status on File) Date Activated Date Inactivated Comments 04/15/2024 4:52 PM 04/16/2024 12:08 AM * Full Code Date Activated Date Inactivated Comments 02/19/2021 9:31 PM 02/22/2021 9:46 PM Care Teams Coating Machine Operator Helper Relationship Specialty Start Date End Date Troy Huizar MD [address] [place] [address] PCP - General 03/20/12 [place] [id number] [address] [address] Consulting Physician Gastroenterology 02/22/21 [place] [id number] [address] [address] Consulting Physician Pulmonary Disease 02/22/21
--- OUTSIDE RECORDS SUMMARY | 2025-01-18 09:14 | XMS_ITS ---
Author Organization [facility] Address [address] [place] [address] Care Team Providers Care Coping Machine Assembler Name Role Phone Troy Huizar MD Primary Care Provider [phone] Olga Choudhary MD Unavailable Efra Reyes MD Unavailable [phone] Transplant Episode Kidney Potential Donor [facility] ([place], [place]) [facility] Evaluation began on 01/15/2020 Marked as Active on 01/15/2020 Reason: Pending Step 3 Completion Kidney CoordinatorNiecy Duarte RN Fax: N/A Email: N/A Care Team Name Role Phone Fax Email Niecy Duarte RN Kidney Coordinator [phone] N /A N/A Events Pre-Donation Referred: 01/15/2020 Evaluation began: 01/15/2020
[2025-01-18 09:24] VITALS: BP 131/72; PULSE 81; RESP 16; TEMP 36.4; O2SAT 100
--- NOTE | 2025-01-18 09:42 | ED_ITS ---
HPI - General Adult General Chief complaint: Fall Stated complaint: Hurting from Dog knocking over Source: patient Mode of arrival: ambulatory Limitations: no limitations History of Present Illness HPI narrative: Patient presents for evaluation after experiencing a fall 2 days ago. She indicates her dog hit her from behind, causing her to fall and hit the right side of her body on the ground. She did not hit her head. No loss of consciousness. She is not on blood thinners. She now reports pain in the right shoulder, right hip, right knee, left knee and left ankle. She states her pain is 3/10 severity. She has an abrasion noted to the right knee. She indicates movement makes her symptoms worse. She tried taking ibuprofen for pain but did not seem to help. She typically takes meloxicam for arthritic pain but currently does not have medication. Related Data Home Medications ?Medication ?Instructions ?Recorded ?Confirmed ?Last Taken ?Type dicyclomine 10 mg capsule mg 01/18/25 Unknown History omeprazole 20 mg capsule,delayed mg 01/18/25 Unknown History release Allergies Allergy/AdvReac Type Severity Reaction Status Date / Time codiene Allergy Intermediate rash Uncoded 04/16/18 10:37 Review of Systems Review of Systems: CONSTITUTIONAL: Denies fever, chills, or sweats. EYES: Denies visual changes, redness, or discharge. ENT: Denies rhinorrhea, congestion, sore throat, or otalgia. CARDIOVASCULAR: Denies chest pain, palpitations, or edema. RESPIRATORY: Denies cough or dyspnea. GASTROINTESTINAL: Denies abdominal pain, nausea, vomiting, or diarrhea. GENITOURINARY: Denies dysuria or hematuria. SKIN: Reports abrasion to the MUSCULOSKELETAL: Reports pain in the right shoulder, right hip, right knee, left knee, left ankle NEUROLOGIC: Denies headache, numbness, dizziness, or weakness. PSYCHIATRIC: Denies anxiety or depression. [facility] Past Medical History Medical History IBS (irritable bowel syndrome) Arthritis Surgical History Surgical History S/P hip arthroscopy Family History Family History Mother Family history non-contributory Social History Social History Living arrangements: with family Gender identity (if verbalized by the patient): Female Spiritual care concerns: No Exam Narrative: GENERAL: Well-appearing, well-nourished, and in no acute distress. HEAD: Normocephalic, atraumatic. EYES: PERRLA and EOMI. ENT: Nares clear, no rhinorrhea or epistaxis. Mucous membranes moist. Oropharynx without tonsillar hypertrophy exudate or other lesions. Bilateral TMs pearly lu nonbulging NECK: Supple. No adenopathy or masses. No carotid bruits or JVD CHEST: Clear to auscultation. No respiratory distress. No wheezes rales or rhonchi HEART: Regular rate and rhythm. No murmur heard. Normal peripheral pulses. ABDOMEN: Soft, nontender, nondistended, normal active bowel sounds. EXTREMITIES: There is tenderness over the right hip for full range of motion intact. Full range of motion of the right knee. No tenderness in the right knee. There is crepitus present in the right knee. Decreased range of motion of right shoulder. Right shoulder is tender to palpation. Range of motion of the left knee and left ankle without associated tenderness. SKIN: Abrasion noted to anterior aspect of right knee with dried sanguinous drai nage present. Trace bruising to anterior aspect of right knee and anterior aspect of left ankle NEURO: No focal deficits. Alert and oriented x3. PSYCH: Normal mood and affect. Course Course Emergency Course: This is a 49-year-old female who presented for evaluation after experiencing a fall two days ago. X-rays negative for fracture. She was provided with a prescription for meloxicam. Advised on RICE therapy. Follow-up with primary provider. Go to the ER for worsening symptoms. Pt in agreement with plan of care. Level of Care: Express Care Visit Vital Signs Vital signs: Vital Signs Temperature 36.4 C 01/18/25 09:24 Pulse Rate 81 01/18/25 09:24 Respiratory Rate 16 01/18/25 09:24 Blood Pressure 131/72 01/18/25 09:24 Pulse Oximetry 100 01/18/25 09:24 Oxygen Delivery Room Air 01/18/25 09:24 Temperature 36.4 C 01/18/25 09:24 Pulse Rate 81 01/18/25 09:24 Respiratory Rate 16 01/18/25 09:24 Blood Pressure 131/72 01/18/25 09:24 Pulse Oximetry 100 01/18/25 09:24 Oxygen Delivery Room Air 01/18/25 09:24 Medical Decision Making Vital Signs Vital Signs: Vital Signs Temperature 36.4 C 01/18/25 09:24 Pulse Rate 81 01/18/25 09:24 Respiratory Rate 16 01/18/25 09:24 Blood Pressure 131/72 01/18/25 09:24 Pulse Oximetry 100 01/18/25 09:24 Oxygen Delivery Room Air 01/18/25 09:24 Temperature 36.4 C 01/18/25 09:24 Pulse Rate 81 01/18/25 09:24 Respiratory Rate 16 01/18/25 09:24 Blood Pressure 131/72 01/18/25 09:24 Pulse Oximetry 100 01/18/25 09:24 Oxygen Delivery Room Air 01/18/25 09:24 Imaging Data Radiologist's impression: EXAMINATION: XR shoulder RT min 2V DATE: 01/18/2025 10:11 INDICATION: Right shoulder injury. TECHNIQUE: 3 views of right shoulder were obtained. COMPARISON: None. FINDINGS: Alignment is normal. No fracture. There is mild osteoarthritis of glenohumeral joint and severe osteoarthritis of acromioclavicular joint. IMPRESSION: 1. Polyarticular osteoarthritis. EXAMINATION: XR knee RT min 4V DATE: 01/18/2025 10:11 INDICATION: Right knee injury. TECHNIQUE: 5 views of right knee were obtained. COMPARISON: None. FINDINGS: Alignment is normal. No fracture. Joint spaces are normal. No knee joint effusion. IMPRESSION: 1. Normal right knee. EXAMINATION: XR hip RT min 2V DATE: 01/18/2025 10:10 INDICATION: Right hip injury. TECHNIQUE: 2 views of right hip were obtained. COMPARISON: None. FINDINGS: Alignment is normal. No fracture. There is mild right hip osteoarthritis. IMPRESSION: 1. Mild right hip osteoarthritis. Discharge Plan Discharge Clinical Impression: Contusion of hip, right, Contusion of knee, right, Right shoulder strain Patient Disposition: Home, Self-Care Condition: Stable Instructions: Antibiotic Form, Muscle Strain (ED), Contusion in Adults (ED) Patient Language: South Sudanese Prescriptions: New meloxicam 15 mg tablet 15 mg PO DAILY PRN (Reason: pain) Qty: 10 0RF No Action omeprazole 20 mg capsule,delayed release(DR/EC) dicyclomine 10 mg capsule Follow-up/Referrals: Harms,Troy Bañuelos M.D. [Primary Care Provider] - Time of Disposition: 10:23
== END 2025-01-18 10:27 | disposition home or self-care (01) ==
PROVIDERS: Emergency Provider Nurse Practitioner; PCP Family Medicine
DX: S70.01XA Contusion of right hip, initial encounter (principal); S80.01XA Contusion of right knee, initial encounter; S46.911A Strain of unspecified muscle, fascia and tendon at shoulder and upper arm level, right arm, initial encounter; W54.1XXA Struck by dog, initial encounter
CPT/HCPCS: 73030; 73502; 73564; 99214; G0463